=== PATIENT | female | born 1945 | race Caucasian/White ===

== ENCOUNTER → 2016-04-02 | Outpatient (CLI) | payer MEDICARE, MEDICAID ==
[~2016-04-02] MED LIST: DAILY MULTIPLE1 T11 PO; HYDROCHLOROTH12.5 M1 PO; KEFLEX 500MG.500 MG PO; LIPITOR40 MG PO; LORTAB 5/500 501 TAB PO; NATURE'S BLEND400 I1 PO; OMEPRAZOLE40 MG PO; OMNICEF 300 MG300 MG PO; PREDNISONE 20MG20 MG PO; ZITHROMAX Z-PA250 M2 PO
== END ==
LOC: LAB 10:07
DX: J47.9 Bronchiectasis, uncomplicated (principal); B49 Unspecified mycosis

== ENCOUNTER 2016-06-22 13:02 | Observation (INO) | payer MEDICARE, MEDICAID ==
[~2016-06-22] VITALS: Ht 160 cm; Wt 53.1 kg
[~2016-06-22 13:02] MED LIST changes: -DAILY MULTIPLE1 T11 PO; -LIPITOR40 MG PO; -OMEPRAZOLE40 MG PO
[2016-06-22 14:34] LABS: BUN 12 mg/dL (7-18)
[2016-06-22 14:36] LABS: GFR (ESTIMATED) 71 ML/MIN (59-)
[2016-06-22 14:45] LABS: HEMOGLOBIN 12.5 g/dL (12.2-16.2); LYMPH # 1.7 K/mm3 (0.7-4.5); LYMPH % 16.9 % (10-50.0)
[2016-06-22] MEDS ORDERED: OMEPRAZOLE40 MG PO (15:01)
[2016-06-22 15:43] VITALS: BP 138/74
[2016-06-22 17:10] VITALS: BP 138/74
[2016-06-22 19:17] LABS: URINE BILIRUBIN - DIPSTICK NEGATIVE (NEG); URINE BLOOD NEGATIVE (NEG)
[2016-06-22 19:38] VITALS: BP 121/55
[2016-06-22 19:59] LABS: URINE SQUAMOUS CELLS OCC #/hpf (0-5)
[2016-06-22 21:15] VITALS: BP 130/71
[2016-06-23] VITALS (7 sets, daily range): BP systolic 120–146; BP diastolic 62–84
--- NOTE | 2016-06-23 04:24 | PHARMACY CLINIC NOTE ---
Patient Demographics Patient Demographics Admission date: 06/22/16 Date: 06/23/16 Time: 042 Allergies Coded Allergies: nitrofurantoin (From MACROBID) (06/22/16) HEIGHT- FT: 5 IN: 3.00 K.071 VTE General Information Labs: Laboratory Tests 06/22 1411 Hematology Hgb (12.2 - 16.2 g/dL) 12.5 Hct (37.0 - 47.0 %) 38.9 Plt Count (142 - 424 K/mm3) 523 H Disclaimer The following section includes nursing documentation that has been pulled in for pharmacy review. Patient's VTE score: 5 Patient's VTE Risk: LOW RISK Clinical trial participant? No VTE prophylaxis NQF [id number] VTE prophylaxis ordered? Yes Type of prophylaxis/treatment: VICKI at 0423
[2016-06-23 07:02] LABS: LYMPH # 2.1 K/mm3 (0.7-4.5); LYMPH % 23.5 % (10-50.0)
[2016-06-23 07:40] LABS: HEMOGLOBIN 10.3 g/dL (12.2-16.2)
--- NOTE | 2016-06-23 08:07 | RADIOLOGY REPORT PS360 ---
CHEST(2 VIEWS-NOT PORTABLE) COMPARISON: PA and lateral chest 02/12/2016 HISTORY: Chest pain TECHNIQUE: PA and lateral chest FINDINGS: There are low lung volumes. Severe advanced interstitial fibrotic changes are seen in both lungs primarily involving the upper lobes. This prominent apical pleural thickening worse left side than right. Mild fibrotic changes are seen in the lower lobes as well. There is no definite pleural fluid. Cardiac size is normal. IMPRESSION: Diffuse advanced interstitial pulmonary fibrotic changes most prominently involving the upper lobes, no definite acute chest pathology noted
--- NOTE | 2016-06-23 08:15 | ACUTE CARE PROGRESS NOTE (QUA) ---
Progress Notes Subjective Date 06/23/16 Time 0814 Note Overall patient feels better. Her vital signs have improved. Interestingly, she told me she's had some dysuria over the past 5 days and has been taking OTC Azo- Standard. Lungs are clear, heart rate regular, abdomen softer. Objective Findings Last VS-Temp:98.7 B/P:120/62 Pulse:84 Resp:20 SaO2:93 OXYGEN Last weight lbs:117 oz:0 K.071 Method:Bed Scales Assessment/Plan Problem List 1. UTI (urinary tract infection) 2. Dehydration Patient condition Improving Plan: continue current care, overall feeling better. Reid reconsultation post bronchoscopy. Ceftriaxone for UTI and await cultures. This inpt stay is expected to cross 2 MNs from start of care Yes at 0815
[2016-06-23] MEDS ORDERED: DAILY MULTIPLE1 T11 PO (10:13)
[2016-06-23] MEDS ORDERED: LIPITOR40 MG PO (10:22)
--- NOTE | 2016-06-23 10:48 | CONSULT NOTE ---
Consult Note Note: "I got so sick." Ms. 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 She has extensive structural damage to the lungs, especially in the upper lobes and on CT scan of the chest, there is an enlarging cavity in the LEFT upper lobe especially. I suspected colonization and perhaps a hypersensitivity response to a fungus such as Aspergillus. 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 After discussion with her, I ordered bronchoscopy which was completed on June 16. Within a day or 2, she began to "feel bad" with symptoms of fever, chills, lower abdominal and upper back pain on both sides. She also experienced dysuria. She endured these symptoms for 4 or 5 days before coming in for admission. Since admission, she has responded symptomatically to fluids and ceftriaxone. She now has no dysuria and the pain has eased considerably. She still feels quite weak. During the period of illness, she became nauseated if she moved around at home and still feels a little nauseated if she stands up. She's had no vomiting, diarrhea or chest pain. The cough persists as before. I reviewed her past medical, family and social history. She never smoked cigarettes. Apart from the systems mentioned above, the rest of the 14 point review of systems is currently negative. On physical examination, Ms. Moore is a thin, ill appearing woman who was in no respiratory distress and who did not cough during the visit. Vital signs: Blood pressure 120/62, temperature 98.7 (and she's been afebrile here), pulse 84, respiratory rate 20 and oxygen saturation 93 percent on room air at rest. HEENT: Sclerae clear; conjunctivae pink; oral mucosa unremarkable. Neck: No JVD and no adenopathy. Chest: Hyperresonance by percussion; good breath sounds and no adventitious sounds. Heart: Regular rhythm; No murmur. Abdomen: Bowel sounds present; soft, mild lower quadrant tenderness; no organomegaly Skin: No rash Neurological: Grossly intact Musculoskeletal: No kajal arthritis I reviewed the laboratory data from this hospital and it appears the urine culture will be positive since there is mention of greater than 100,000 organisms. Her WBC was not elevated. Chest x-ray showed no significant change from past films. There was no evidence of acute pneumonia. Bronchoalveolar lavage showed a preponderance of neutrophils and the only other positive finding was 2+ AFB. Gene probe for tuberculosis was negative. Cultures are pending. Cytology was negative. Ms. 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 She and I had a discussion about this today and I explained to her that I'd have to wait to see what the culture showed and, if treatment is considered, what the sensitivities of this organism might be due to antibiotics. This will be a difficult organism to treat in any case, I think. I plan to follow up with her in a couple of weeks. Thank you for the opportunity to participate in Ms. Moore's care. at [id number]
[2016-06-24] VITALS: BP 141/71
[2016-06-24 03:41] VITALS: BP 133/69
[2016-06-24 06:59] LABS: HEMOGLOBIN 10.4 g/dL (12.2-16.2); LYMPH # 1.9 K/mm3 (0.7-4.5); LYMPH % 22.3 % (10-50.0)
[2016-06-24 08:00] VITALS: BP 137/65
--- NOTE | 2016-06-24 08:15 | ACUTE CARE PROGRESS NOTE (QUA) ---
Progress Notes Subjective Date 06/24/16 Time 0815 Patient/family reports: feeling better, no complaints Objective Findings Last VS-Temp:98.9 B/P:133/69 Pulse:80 Resp:20 SaO2:95 OXYGEN Last weight lbs:117 oz:0 K.071 Method:Bed Scales Exam General appearance: normal appearance, alert Eyes: anicteric Neck: non-tender Cardiovascular: no JVD, no ectopics Assessment/Plan Problem List 1. UTI (urinary tract infection) 2. Dehydration Patient condition Improving Plan: initiate discharge plan This inpt stay is expected to cross 2 MNs from start of care Yes at 0815
[2016-06-24] MEDS ORDERED: OMNICEF 300 MG300 MG PO (08:17)
--- NOTE | 2016-06-24 08:20 | DISCHARGE SUMMARY STANDARD ---
Demographics Admit date: 06/22/16 Discharge date: 06/24/16 History of present illness History of present illness Please see scanned note from my office chart, briefly patient underwent bronchoscopy and afterwards had some significant nausea and vomiting for a couple of days and became dehydrated, an office where she was found to be orthostatic and tachycardic. Negative for further evaluation Hospital Course Hospital Course: Patient was admitted, found to have Escherichia coli urinary tract infection and hypokalemia. This was corrected with antibiotics and potassium supplementation respectively and felt much better. Pulmonary evaluated her, note reviewed. This morning she is feeling much better, she was discharged home on daily cefdinir for 7 days, her HCTZ will be discontinued because of her dehydration and hypokalemia issues. She will be followed up in pulmonary clinic next week and in my office as scheduled. Discharge diagnoses Problem List 1. UTI (urinary tract infection) 2. Dehydration Medications Medications: Discharge meds are as noted. Follow up Follow up in office in: prn with: Kranthi Bradford MD at 0820
[2016-06-24 11:11] VITALS: BP 137/65
== END 2016-06-24 13:55 | disposition home or self-care (01) ==
LOC: 2ND 13:02
PROVIDERS: Internal Medicine Adolescent Medicine
DX: N39.0 Urinary tract infection, site not specified (principal); B96.20 Unspecified Escherichia coli [E. coli] as the cause of diseases classified elsewhere; E55.9 Vitamin D deficiency, unspecified; J84.10 Pulmonary fibrosis, unspecified; N30.10 Interstitial cystitis (chronic) without hematuria; E86.0 Dehydration; E87.6 Hypokalemia
CPT/HCPCS: G0378

== ENCOUNTER → 2016-09-22 | Outpatient (CLI) | payer MEDICARE, MEDICAID ==
[~2016-09-22] MED LIST changes: +DAILY MULTIPLE1 T11 PO; +LIPITOR40 MG PO; +OMEPRAZOLE40 MG PO
--- NOTE | 2016-09-22 15:40 | RADIOLOGY REPORT PS360 ---
[id number] VIEWS COMPARISON: PA and lateral chest 06/22/2016 HISTORY: Cough, chest wall pain TECHNIQUE: PA chest and oblique views of the right ribs FINDINGS: Chronic interstitial chronic changes are seen in both perihilar regions and upper lobes. There is generalized osteopenia the thoracic spine. All the right ribs 1 through 12 are visualized and appear grossly intact with no definite fracture seen. There is no pneumothorax. IMPRESSION: Chronic lung changes no definite right rib fracture seen though with the generalized osteopenia a subtle nondisplaced rib fracture could be missed
--- NOTE | 2016-09-22 15:41 | RADIOLOGY REPORT PS360 ---
HUMERUS-RT COMPARISON: None HISTORY: Right arm pain and right shoulder pain TECHNIQUE: AP and lateral views FINDINGS: The humeral head and humeral shaft appear intact. The soft tissues are normal. There is obvious fracture of the lateral clavicle is essentially nondisplaced. IMPRESSION: Grossly negative right humerus, fracture lateral right clavicle
--- NOTE | 2016-09-22 15:43 | RADIOLOGY REPORT PS360 ---
[id number] VIEW-RT COMPARISON: PA chest same date HISTORY: Right shoulder and right clavicle pain TECHNIQUE: Internal and external rotation views FINDINGS: The fracture of the lateral clavicle without significant displacement and with to 3 mm distraction at the fracture site. The AC joint remains intact. The humeral head and glenoid appear normal. There are no soft tissue calcifications. IMPRESSION: Fracture right clavicle
--- NOTE | 2016-09-22 15:44 | RADIOLOGY REPORT PS360 ---
CLAVICLE-RT COMPARISON: Right shoulder same date HISTORY: Right shoulder and right clavicle pain TECHNIQUE: AP views FINDINGS: There is a fracture of the lateral clavicle just proximal to the AC joint without significant displacement or angulation. The AC joint appears intact. The scapula is grossly intact as is the humeral head. IMPRESSION: Fracture lateral clavicle
--- NOTE | 2016-09-23 12:41 | RADIOLOGY REPORT PS360 ---
CHEST(2 VIEWS-NOT PORTABLE) COMPARISON: PA and lateral chest 06/22/2016 HISTORY: Shortness of breath right shoulder pain TECHNIQUE: AP and lateral upright chest FINDINGS: The lung woods are fairly well-expanded revealing prominent interstitial fibrotic changes in both perihilar regions extending into both upper lobes slightly more prominent left side than right. The lateral film is underpenetrated and the patient's arm projects over the image. There is no obvious acute pneumonic infiltrate seen. There does appear to be minimal post left or scarring at the left base. There is no pleural fluid. Cardiac size is normal. IMPRESSION: Chronic interstitial fibrotic changes in both upper lobes and apices, doubt acute chest pathology
== END ==
LOC: RAD 12:40
DX: M25.511 Pain in right shoulder (principal); M89.8X1 Other specified disorders of bone, shoulder